=== PATIENT | female | born 1945 | race Two or more races ===

== ENCOUNTER 2025-03-07 15:59 | Emergency (ER) | payer OTHER ==
[~2025-03-07] VITALS: Ht 152.4 cm; Wt 49.9 kg
[2025-03-07] MEDS ORDERED: ATACAND HCT 161 EACH (17:12)
[2025-03-07] MEDS ORDERED: SIMVASTATIN5 MG (17:12)
[2025-03-07] MEDS ORDERED: [UNRECOGNIZED DRUG - OTHER] PO (17:12)
[2025-03-07] MEDS ORDERED: ONDANSETRON HCL 2 MG/ML VIAL IV ONE (18:00)
[2025-03-07] MEDS ORDERED: FAMOTIDINE/PF 20 MG/2 ML VIAL IV ONE (18:00)
[2025-03-07] MEDS ORDERED: 0.9 % SODIUM CHLORIDE 500 ML IV ONE (18:00)
[2025-03-07] MEDS ORDERED: ONDANSETRON HCL 2 MG/ML VIAL ONE (18:02)
[2025-03-07] MEDS ORDERED: FAMOTIDINE/PF 20 MG/2 ML VIAL ONE (18:02)
[2025-03-07 18:28] LABS: BASO % 0.4 % (0.1-1.2); EOS # 0.01 (0.04-0.54); EOS % 0.2 % (0.7-7.0); LYMPH # 1.24 (1.18-3.74); LYMPH % 24.1 % (19.3-53.1); MEAN PLATELET VOLUME 9.30 fl (9.4-12.4); MONO # 0.38 (0.24-0.82); MONO % 7.4 % (4.7-12.5); NEUT # 3.48 (1.56-6.13); NEUT % 67.5 % (34.0-71.1); RED CELL DISTRIBUTION WIDTH 12.3 % (11.6-14.4)
[2025-03-07 19:09] LABS: ALT/SGPT 33.0 U/L (12-78); AST/SGOT 30.0 U/L (15-37); BILIRUBIN TOTAL 1.68 mg/dL (0.3-1.2); BUN CREA RATIO 16.0 (7.0-25.0); CREATININE SERUM 0.69 mg/dL (0.55-1.02); GFR 82.5; GLOBULINA 3.6 G/DL (2.4-3.5); GLUCOSE FASTING 104.0 mg/dL (65-100); OSMOLALITY SERUM 285.0 MOSM/KG (275-295)
[2025-03-07 19:14] LABS: URINE APPEARANCE Error; URINE BILIRRUBIN Negative (NEGATIVE); URINE BLOOD Negative; URINE COLOR Yellow; URINE GLUCOSE Negative (NEGATIVE); URINE KETONE Negative (NEGATIVE); URINE LEUKOCYTE Moderate; URINE NITRATE Negative; URINE PROTEIN Negative (NEGATIVE); URINE UROBILINOGEN 0.2 E.U./dl
[2025-03-07 19:15] LABS: URINE BACTERIA 1006.5 uL (0.0-1933); URINE EPITHELIAL CELLS 65.1 uL (0.0-38.8); URINE RBC 5.0 uL (0.0-20.8); URINE WBC 37.8 uL (0.0-23.2)
[2025-03-07 19:15] LABS: COVID-19 AG NEGATIVE (NEGATIVE)
[2025-03-07 19:24] LABS: TYPE CELLS RENAL TUBULAR; URINE CAST 0.00 uL (0.0-1.40); URINE CRYSTALS MODERATE /HPF
[2025-03-07] MEDS ORDERED: PEPCID AC20 MG PO (21:09)
[2025-03-07] MEDS ORDERED: ONDANSETRON ODT4 MG PO (21:09)
== END 2025-03-07 21:43 | disposition home or self-care (01) ==
LOC: ER 15:59
PROVIDERS: General Practice
DX: R10.9 Unspecified abdominal pain (principal); R11.2 Nausea with vomiting, unspecified; R42 Dizziness and giddiness; R11.10 Vomiting, unspecified; I10 Essential (primary) hypertension; Z20.822 Contact with and (suspected) exposure to COVID-19
CPT/HCPCS: 36415; 70450; 74177; 93005; 96365; 96366; 99284; J2405; J3490; J7042; Q9965

== ENCOUNTER → 2025-03-20 | Emergency (ER) | payer OTHER ==
[~2025-03-20] MED LIST: ATACAND HCT 161 EACH; ONDANSETRON ODT4 MG PO; PEPCID AC20 MG PO; SIMVASTATIN5 MG; [UNRECOGNIZED DRUG - OTHER] PO
== END | disposition left against medical advice (07) ==
LOC: ER 20:25
DX: Z53.21 Procedure and treatment not carried out due to patient leaving prior to being seen by health care provider (principal)